=== PATIENT | female | born 1975 | race Caucasian/White ===

== ENCOUNTER → 2016-09-26 | Outpatient (CLI) | payer OTHER | END | disposition home or self-care (01) | LOC: CFH 15:35 | PROVIDERS: ATTEND Obstetrics & Gynecology | DX: Z12.31 Encounter for screening mammogram for malignant neoplasm of breast (principal) | CPT/HCPCS: G0202 ==

== ENCOUNTER → 2017-10-31 | Outpatient (CLI) | payer BC | END | disposition home or self-care (01) | LOC: CFH 15:48 | PROVIDERS: ATTEND Obstetrics & Gynecology | DX: Z12.31 Encounter for screening mammogram for malignant neoplasm of breast (principal) | CPT/HCPCS: 77067 ==

== ENCOUNTER → 2017-11-22 | Outpatient (CLI) | payer BC | END | disposition home or self-care (01) | LOC: CFH 15:07 | PROVIDERS: ATTEND Obstetrics & Gynecology | DX: R92.2 Inconclusive mammogram (principal) | CPT/HCPCS: 77065; G0279 ==